=== PATIENT | male | born 1960 | race Caucasian/White ===

== ENCOUNTER → 2017-11-03 15:56 | Outpatient (CLI) | payer OTHER ==
[2013-06-15 08:31] VITALS: BMI 27.4
[~2017-11-03 15:56] MED LIST: ZESTRIL20 MG PO
== END | disposition home or self-care (01) ==
LOC: D.RAD 15:56
DX: Z12.2 Encounter for screening for malignant neoplasm of respiratory organs (principal)

== ENCOUNTER 2018-08-20 12:33 | Emergency (ER) | payer OTHER ==
[~2018-08-20] VITALS: Ht 193 cm; Wt 88.5 kg
[2018-08-20 12:35] VITALS: Ht 193 cm; Wt 88.5 kg
[2018-08-20 12:48] LABS: BASOPHILS 0.3 % (0-2); EOSINOPHILS 1.1 % (0-7); HEMATOCRIT 44.1 % (42.0-54.0); HEMOGLOBIN 15.5 g/dL (13.5-17.5); IMMATURE GRANULOCYTES 0.2 % (0-5); LYMPHOCYTES 16.2 % (15-50); MCH 33.7 pg (26.0-34.0); MCHC 35.1 g/dL (31.0-37.0); MCV 95.9 fL (80.0-100.0); MEAN PLATELET VOLUME 10.8 fL (7.4-10.4); MONOCYTES 6.8 % (2-11); NEUTROPHILS 75.4 % (40-80); PLATELET COUNT 248 10x3/uL (130-400); RDW 12.6 % (11.5-14.5); WBC 8.7 10x3/uL (4.8-10.8)
[2018-08-20 13:11] LABS: ALBUMIN 3.9 g/dL (3.4-5.0); ALKALINE PHOSPHATASE 65 U/L (46-116); ALT (SGPT) 44 U/L (10-68); BILIRUBIN - TOTAL 1.27 mg/dL (0.2-1.3); CALC OSMOLALITY 280 mosm/kg (275-300); CALCIUM 9.3 mg/dL (8.5-10.1); CHLORIDE - SERUM 106 mmol/L (98-107); CREATININE - SERUM 1.1 mg/dL (0.6-1.3); GLUCOSE 132 mg/dL (74-106); POTASSIUM - SERUM 4.2 mmol/L (3.5-5.1); PROTEIN - SERUM 7.2 g/dL (6.4-8.2); SODIUM 139 mmol/L (136-145); UREA NITROGEN 16 mg/dL (7-18); eGFR NON AFRICAN AMERICAN 73 mL/min (90-120)
[2018-08-20 13:24] LABS: CKMB 1.7 U/L (0.0-3.6); CREATINE KINASE 50 UL (21-232); PRO BNP 4244 pg/mL (0-125); TROPONIN-I < 0.017 ng/mL (0.000-0.060)
[2018-08-20] MEDS ORDERED: FUROSEMIDE20 MG PO (15:24)
[2018-08-20 15:38] VITALS: BP 122/55
== END 2018-08-20 15:40 | disposition home or self-care (01) ==
LOC: D.ER 12:33
PROVIDERS: Emergency Medicine
DX: R06.02 Shortness of breath (principal)

== ENCOUNTER 2018-10-18 10:35 | Inpatient (IN) | payer OTHER ==
[2018-10-18] VITALS (7 sets, daily range): BP systolic 108–126; BP diastolic 63–71
[~2018-10-18] VITALS: Ht 195.6 cm; Wt 87.7 kg
--- NOTE | ~2018-10-18 | MORECARE ---
CASE MANAGEMENT DISCHARGE SUMMARY PATIENT: JEWEL VERONICA UNIT: [id number] ADM DATE: 10/18/18 AGE: 58 : 64 SEX: M ROOM/BED: D.1220 AUTHOR: MILADIS RICH PHYSICIAN: REFERRING PHYSICIAN: COLTON JAIN DO DATE OF SERVICE: 10/20/18 Discharge Plan Patient Name: JEWEL VERONICA [facility] [facility] 1960 Planned Disposition: Home Anticipated Discharge Date: Discharge Date: 10/20/2018 Expected LOS: Initial Reviewer: [email or web address] Initial Review Date: 10/20/2018 Generated: 10/20/18 9:08 pm Comments DCP- Discharge Planning Updated by [email or web address]: Heide Valenzuela on 10/20/18 7:[address] Patient Name: JEWEL VERONICA Admission Status: ER Accout number: [id number] Admission Date: 10-18-2018 : 1960 Admission Diagnosis: Attending: Colton Jain Current LOS: 2 Anticipated DC Date: Planned Disposition: Home Primary Insurance: [employer] Discharge Planning Comments: CM met with patient at bedside after obtaining verbal consent. Patient states he plans on returning home after discharge with his . Patient states he will have family transport him home via private vehicle. Patient denies any discharge needs at this time. Order received for home nebulizer. CM faxed over records to [employer] fax [phone]. Patient stated that he would picker on his way home. CM will continue to follow and assist as needed for discharge planning / needs. Solder Cream Maker: Heide Valenzuela DCPIA - Discharge Planning Initial Assessment Updated by [email or web address]: Heide Valenzuela on 10/20/18 8:02 pm * Is the patient Alert and Oriented? Yes * How many steps to enter\exit or inside your home? 3-4 * PCP CRISTOBAL * Pharmacy [facility] * Preadmission Environment Home with Family * ADLs Independent * Equipment None * List name and contact numbers for known caregivers / representatives who currently or will assist patient after discharge: DMITRIY VERONICA [phone] * Verbal permission to speak to the caregivers and representatives has been obtained from the patient. Yes * Community resources currently utilized None * Additional services required to return to the preadmission environment? No * Can the patient safely return to the preadmission environment? Yes * Has this patient been hospitalized within the prior 30 days at any hospital? No Last DP export: 10/20/18 7:02 Patient Name: JEWEL VERONICA Page [id number] at 2009 All edits/amendments must be made on the electronic document DICTATION DATE: 10/20/182007 EMPLOYMENT SPECIALIST: ABEBA 10/20/182007 RPT#: [id number] DC DATE:10/20/18 STATUS: DIS IN [facility] [address] [place] [address] END OF REPORT
--- NOTE | ~2018-10-18 | CN ---
PATIENT NAME:JEWEL VERONICA MEDICAL RECORD: [id number] : 64 LOCATION:[place] [address] ADMIT DATE: 10/18/18 ACCOUNT: [id number] CONSULTING PHYSICIAN: BRAD CHÁVEZ MD REFERRING PHYSICIAN: DARWIN JAIN DO DATE OF CONSULTATION: 10/19/2018 CARDIOLOGY CONSULT DIAGNOSES: 1. Shortness of breath. 2. Mitral regurgitation. 3. Elevated troponin. 4. Chronic obstructive pulmonary disease. 5. Possible pneumonia. HISTORY OF PRESENT ILLNESS: This is a gentleman who presents with increasing episodes of shortness of breath, no chest pain. His troponin is mildly elevated. His BNP is elevated at 12,000; however, his chest x-ray is not compatible with congestive heart failure. He had a cardiac workup at [facility] within the past year, including a cardiac catheterization that was normal. He had an echocardiogram and was told he had mitral regurgitation. PHYSICAL EXAMINATION: GENERAL APPEARANCE: Well-nourished, well-developed, appears stated age. Level of distress, comfortable. PSYCHIATRIC: Mental status, alert, normal affect. Orientation, oriented to time, place and person. EYES: Lids and conjunctiva, noninjected. No discharge, no pallor. ENT: Lips, teeth, gums, normal dentition. Oropharynx, no cyanosis, no pallor. NECK: Carotid arteries, bilateral normal upstroke, no bruits, no thrills. JUGULAR VEINS: No jugular venous pressure or distention. CERVICAL LYMPH NODES: Nontender, nonenlarged. THYROID: Not enlarged. Nontender. No nodules. LUNGS: Respiratory effort, unlabored. CHEST: Normal curvature. No thoracic deformity. No chest wall tenderness. Percussion, resonant. Auscultation, clear. No wheezes, no rales, no rhonchi. CARDIOVASCULAR: Precordial exam, nondisplaced. No heaves or pericardial thrills. Rate and rhythm, regular. Heart sounds, normal S1, normal S2. No S3, no gallop, no rub. Systolic murmur, not heard. Diastolic murmur, not heard. EXTREMITIES: No cyanosis, no edema. Peripheral pulses, full and equal in all extremities, except as noted. No bruits appreciated. ABDOMEN: Soft, nondistended. Normal aorta. No bruit. Nontender. No masses. Liver, nontender, no hepatomegaly. Spleen, nontender, no splenomegaly. MUSCULOSKELETAL: No joint tenderness. No joint swelling. No erythema. NEUROLOGICAL: Normal gait, normal strength, normal tone. SKIN: Warm and dry. OVERALL IMPRESSION: Shortness of breath. The chest x-ray and CT are compatible with possible pneumonia, not compatible with congestive heart failure. We will get an echocardiogram, other than that no other cardiac workup or treatment is necessary at this time. TRANSINT:[id number] Voice Confirmation ID: [id number] DOCUMENT ID: [id number] CONSULT REPORT [id number] JEWEL VERONICA, BRAD MARTIN at 1718 CC: [id number] DICTATION DATE: 10/19/1848 IT ACCOUNT MANAGER: 10/19/18 1036 ADM IN [facility] [address] [place] [address]
--- NOTE | ~2018-10-18 | EC ---
PATIENT:JEWEL VERONICA DATE OF SERVICE: 10/18/18 SEX: M MEDICAL RECORD: [id number] DATE OF : [birth year] [facility] AGE OF PATIENT: 58 ADMISSION DATE: 10/18/18 REFERRING PHYSICIAN: INTERPRETING PHYSICIAN: BRAD NICHOLSON MD ECHOCARDIOGRAM REPORT ECHO CHARGES 4 ECHO COMPLETE Date: 10/19/18 CLINICAL DIAGNOSIS: ELEVATED BNP/ASSESS VALVE AND FOR MITRAL REGURG REGURG ECHOCARDIOGRAPHIC MEASUREMENTS (adult normal given) AC root (d.<3.7cm) 4.2 cm LV Septum d (<1.2 cm> 1.6 cm Valve Excursion 1.3 cm LV Septum (systole) 1.9 cm Left Atria (s.<4.0cm> 4.6 cm LVPW d(<1.2cm) 2.0 cm RV (d.<2.3cm) 4.1 cm LVPW (sytole) 2.2 cm LV diastole(<5.6CM) 6.7 cm MV E-F(>70mm/sec) cm LV systole 5.6 cm LVOT Diameter 1.7 cm MV exc.(>10mm) 1.7 cm Est.ejection fraction (50-75%) % DOPPLER: LVIT cm/sec A 38.0 cm/sec E 103 cm/sec LA cm/sec RVSP 30 mmHg LVOT 220 cm/sec AOP1/2T m/s Asc. Ao 410 cm/sec RVOT 80 cm/sec RA cm/sec PA 113 cm/sec AV Gradient Peak 67.37mmHg AV Mean 42.98mmHg AV Area 1.2 cm MV Gradient Peak mmHg MV Mean mmHg MV Area cm COMMENTS: Blind Escort: Carina HERMAN Monument Letterer: 1 Dr. Nicholson TAPE# PACS Pericardial Effusion N DATE OF SERVICE: 10/19/2018 FINDINGS: 1. Left ventricular chamber size is mildly dilated. Left ventricular systolic function is preserved. Overall ejection fraction is 50% to 55%. 2. Left atrium is enlarged at 4.6 cm. Right atrium and right ventricle chamber sizes are as well mildly dilated. 3. Valvular structures: Aortic valve demonstrates rkziwern-by-uvzacg calcific aortic stenosis. Valve area calculates to 1.2 cm-squared with gradient of 67 mm ECHOCARDIOGRAM REPORT [id number] GLENYS,JEWEL S across the valve. The remaining valvular structures have normal structure and motion. 4. Doppler interrogation else raymond reveals mild tricuspid regurgitation. No other valvular insufficiency or stenosis. Pulmonary systolic pressure is estimated at 30 mmHg. 5. No evidence of pericardial effusion or left ventricular thrombus. TRANSINT:[id number] Voice Confirmation ID: [id number] DOCUMENT ID: [id number] BRAD NICHOLSON MD at 1718 CC: [id number] DICTATION DATE: 10/19/18 1154 COOK FROZEN DESSERT: 10/19/18 1244 ADM IN [facility] [address] [place] [address]
--- NOTE | ~2018-10-18 | MORECARE ---
CASE MANAGEMENT DISCHARGE SUMMARY PATIENT: JEWEL VERONICA S UNIT: [id number] ADM DATE: 10/18/18 AGE: 58 : 64 SEX: M ROOM/BED: D.1220 AUTHOR: MILADIS RICH PHYSICIAN: REFERRING PHYSICIAN: DARWIN JAIN DO DATE OF SERVICE: 10/20/18 Discharge Plan Patient Name: JEWEL VERONICA [facility] [facility] 1960 Planned Disposition: Home Anticipated Discharge Date: Discharge Date: 10/20/2018 Expected LOS: Initial Reviewer: [email or web address] Initial Review Date: 10/20/2018 Generated: 10/20/18 9:02 pm DCPIA - Discharge Planning Initial Assessment Updated by [email or web address]: Heide Valenzuela on 10/20/18 8:02 pm * Is the patient Alert and Oriented? Yes * How many steps to enter\exit or inside your home? 3-4 * PCP CRISTOBAL * Pharmacy [facility] * Preadmission Environment Home with Family * ADLs Independent * Equipment None * List name and contact numbers for known caregivers / representatives who currently or will assist patient after discharge: DMITRIY VERONICA [phone] * Verbal permission to speak to the caregivers and representatives has been obtained from the patient. Yes * Community resources currently utilized None * Additional services required to return to the preadmission environment? No * Can the patient safely return to the preadmission environment? Yes * Has this patient been hospitalized within the prior 30 days at any hospital? No External Providers External Provider: [facility] Next Contact Date: Service Request Date: Service Type: Resolution: Reviewer: Comments: Patient Name: JEWEL VERONICA Page [phone] at 2001 All edits/amendments must be made on the electronic document DICTATION DATE: 10/20/182001 PLASTIC BOAT PATCHER: ABEBA 10/20/182001 RPT#: [id number] DC DATE:10/20/18 STATUS: DIS IN [facility] [address] [place] [address] END OF REPORT
--- NOTE | ~2018-10-18 | CN ---
PATIENT NAME:JEWEL RENDON MEDICAL RECORD: [id number] : 64 LOCATION:[facility] [address] ADMIT DATE: 10/18/18 ACCOUNT: [id number] CONSULTING PHYSICIAN: DONI HERNANDEZ MD REFERRING PHYSICIAN: COLTON JAIN DO DATE OF CONSULTATION: 10/19/2018 CONSULT REQUESTING PHYSICIAN: Colton Jain DO REASON FOR CONSULTATION: Dyspnea, bilateral pleural effusion, and pulmonary edema. HISTORY OF PRESENT ILLNESS: Mr. Rendon is a 58-year-old gentleman who has history of chronic systolic congestive heart failure with EF 40% to 45% in June of this year. He was seen by the medical technologist chemistry. According to the patient, this is the second episode. He woke up with orthopnea and severe shortness of breath. He coughs with whitish color sputum production. On evaluation in the ER, it was found out that he has bilateral pleural effusion and bilateral infiltrate. REVIEW OF THE SYSTEMS: As in history of present illness. PAST MEDICAL HISTORY: 1. COPD. 2. Hypertension. 3. Congestive heart failure. ALLERGY: There is no known drug allergy. MEDICATIONS: On [employer]. He is on IV Lasix. PERSONAL AND SOCIAL HISTORY: The patient is drinking for 25 years. He was also ex-smoker. FAMILY HISTORY: Noncontributory. PHYSICAL EXAMINATION: GENERAL: Now, the patient is lying comfortably in bed. He is not in acute distress. VITAL SIGNS: The blood pressure is 125/65, pulse is 73, respiration is 16, temperature is 97, and SpO2 is 98% on room air. HEENT: Conjunctivae are pink. Sclerae are not icteric. NECK: Neck is supple. No JVD. CHEST: The chest excursion is minimal on both sides. There are bilateral crackles. No wheezing. HEART: Rhythm regular. Normal sound. No murmur. ABDOMEN: Abdomen is soft. Bowel sounds present. No hepatosplenomegaly. RECTAL: Deferred. EXTREMITIES: No cyanosis. No clubbing. No pedal edema. CENTRAL NERVOUS SYSTEM: The patient is awake and alert. There is no obvious cranial nerve abnormality. DIAGNOSTIC DATA: CTA of the chest; there is no pulmonary embolism. There is multifocal airspace disease in right upper lobe, right lower lobe, and left lower lobe. There is also ghicw-eu-rfgbsard pleural effusion, right more than CONSULT REPORT [id number] JEWEL RENDON S the left. There are emphysematous changes. IMPRESSION: 1. Multilobar pneumonia, most likely community-acquired pneumonia. 2. Pulmonary edema secondary to congestive heart failure and systolic dysfunction with ejection fraction of 40%. 3. Bilateral pleural effusions, right more than the left, secondary to CHF. 4. Acute exacerbation of COPD. 5. Elevated cardiac enzymes. RECOMMENDATION: 1. Continue Lasix. Start methylprednisolone IV. 2. Brovana and budesonide nebulizer. 3. Albuterol/ipratropium nebulizer. 4. Continue empiric Levaquin. 4. Follow up labs and chest radiograph. 5. DVT prophylaxis. 6. Cardiology on board. Dr. Jain, thank you for involving me in the care of Mr. Rendon. TRANSINT:[id number] Voice Confirmation ID: [id number] DOCUMENT ID: [id number] DONI HERNANDEZ MD CC: [id number] DICTATION DATE: 10/19/181734 IRS AGENT: 10/19/182206 ADM IN [place] [id number] [place] [id number]
[~2018-10-18 10:35] MED LIST changes: +FUROSEMIDE20 MG PO
[2018-10-18 11:16] LABS: BASOPHILS 0.3 % (0-2); EOSINOPHILS 0.3 % (0-7); HEMATOCRIT 42.6 % (42.0-54.0); HEMOGLOBIN 14.5 g/dL (13.5-17.5); IMMATURE GRANULOCYTES 0.1 % (0-5); LYMPHOCYTES 9.8 % (15-50); MCH 32.7 pg (26.0-34.0); MCV 96.2 fL (80.0-100.0); MEAN PLATELET VOLUME 10.7 fL (7.4-10.4); MONOCYTES 6.3 % (2-11); NEUTROPHILS 83.2 % (40-80); PLATELET COUNT 229 10x3/uL (130-400); RBC 4.43 10x6/uL (4.20-6.10); RDW 13.1 % (11.5-14.5); WBC 7.4 10x3/uL (4.8-10.8)
[2018-10-18 11:29] LABS: APTT 26.4 SECONDS (22.8-39.4); INR 1.05 (0.85-1.17); PROTIME 13.2 SECONDS (11.6-15.0)
[2018-10-18 11:35] LABS: ALBUMIN 3.6 g/dL (3.4-5.0); ALKALINE PHOSPHATASE 103 U/L (46-116); ALT (SGPT) 139 U/L (10-68); BILIRUBIN - TOTAL 2.02 mg/dL (0.2-1.3); CALC OSMOLALITY 280 mosm/kg (275-300); CALCIUM 9.1 mg/dL (8.5-10.1); CARBON DIOXIDE 24.2 mmol/L (21.0-32.0); CHLORIDE - SERUM 106 mmol/L (98-107); GLUCOSE 120 mg/dL (74-106); POTASSIUM - SERUM 4.5 mmol/L (3.5-5.1); PROTEIN - SERUM 6.7 g/dL (6.4-8.2); SODIUM 139 mmol/L (136-145); UREA NITROGEN 18 mg/dL (7-18); eGFR NON AFRICAN AMERICAN 82 mL/min (90-120)
[2018-10-18 11:47] LABS: CKMB 4.5 U/L (0.0-3.6); CREATINE KINASE 128 UL (21-232); PRO BNP 12713 pg/mL (0-125)
[2018-10-18 11:55] LABS: TROPONIN-I 0.078 ng/mL (0.000-0.060)
[2018-10-18] MEDS ORDERED: ZESTRIL40 MG PO (12:31)
[2018-10-18] MEDS ORDERED: BISOPROLOL-HCT1 EAC1 PO (12:33)
[2018-10-18] MEDS ORDERED: SINGULAIR10 MG PO (12:34)
[2018-10-18] MEDS ORDERED: SYMBICORT 16010.2 GM POINH (12:35)
[2018-10-18] MEDS ORDERED: ALEVE-D SINUS1 EACH (12:35)
[2018-10-19 07:47] LABS: BASOPHILS 0.5 % (0-2); EOSINOPHILS 1.2 % (0-7); HEMATOCRIT 43.9 % (42.0-54.0); HEMOGLOBIN 15.4 g/dL (13.5-17.5); IMMATURE GRANULOCYTES 0.2 % (0-5); LYMPHOCYTES 13.3 % (15-50); MCH 33.2 pg (26.0-34.0); MCHC 35.1 g/dL (31.0-37.0); MCV 94.6 fL (80.0-100.0); MEAN PLATELET VOLUME 10.9 fL (7.4-10.4); MONOCYTES 11.7 % (2-11); NEUTROPHILS 73.1 % (40-80); PLATELET COUNT 235 10x3/uL (130-400); RBC 4.64 10x6/uL (4.20-6.10); RDW 13.2 % (11.5-14.5); WBC 5.6 10x3/uL (4.8-10.8)
[2018-10-19 08:16] LABS: ALBUMIN 3.7 g/dL (3.4-5.0); ALKALINE PHOSPHATASE 102 U/L (46-116); ALT (SGPT) 120 U/L (10-68); BILIRUBIN - TOTAL 3.03 mg/dL (0.2-1.3); CALC OSMOLALITY 280 mosm/kg (275-300); CALCIUM 9.2 mg/dL (8.5-10.1); CARBON DIOXIDE 24.9 mmol/L (21.0-32.0); CHLORIDE - SERUM 102 mmol/L (98-107); CKMB 12.1 U/L (0.0-3.6); CREATININE - SERUM 1.1 mg/dL (0.6-1.3); GLUCOSE 109 mg/dL (74-106); PROTEIN - SERUM 7.2 g/dL (6.4-8.2); SODIUM 140 mmol/L (136-145); THYROID STIMULATING HORMONE 1.18 uIU/mL (0.36-3.74); UREA NITROGEN 14 mg/dL (7-18); eGFR NON AFRICAN AMERICAN 73 mL/min (90-120)
[2018-10-19 08:20] LABS: CREATINE KINASE 339 UL (21-232); POTASSIUM - SERUM 3.7 mmol/L (3.5-5.1); TROPONIN-I 0.077 ng/mL (0.000-0.060)
[2018-10-19 14:14] LABS: CREATINE KINASE 327 UL (21-232)
[2018-10-19 14:16] LABS: TROPONIN-I 0.072 ng/mL (0.000-0.060)
[2018-10-19 19:35] LABS: CKMB 9.4 U/L (0.0-3.6)
[2018-10-19 19:37] LABS: CREATINE KINASE 507 UL (21-232)
[2018-10-19 19:38] LABS: TROPONIN-I 0.093 ng/mL (0.000-0.060)
[2018-10-19 20:22] VITALS: BP 99/51; Ht 195.6 cm; Wt 87.7 kg
[2018-10-19 20:47] VITALS: BP 111/59
[2018-10-20 01:00] VITALS: BP 105/65
[2018-10-20 05:39] VITALS: BP 91/57
[2018-10-20] MEDS ORDERED: LEVAQUIN750 MG PO (07:03)
[2018-10-20] MEDS ORDERED: IPRAT-ALBUT 0.5-3 ML INH (07:04)
[2018-10-20] MEDS ORDERED: LASIX40 MG PO (07:05)
[2018-10-20] MEDS ORDERED: K-TAB10 MEQ PO (07:06)
[2018-10-20] MEDS ORDERED: Zebeta PO (07:06)
[2018-10-20] MEDS ORDERED: STERAPRED DS 1210 MG PO (07:08)
[2018-10-20 07:16] LABS: BASOPHILS 0.1 % (0-2); EOSINOPHILS 0 % (0-7); HEMATOCRIT 44.9 % (42.0-54.0); HEMOGLOBIN 15.7 g/dL (13.5-17.5); IMMATURE GRANULOCYTES 0.3 % (0-5); LYMPHOCYTES 3.9 % (15-50); MCH 33.3 pg (26.0-34.0); MCV 95.1 fL (80.0-100.0); MEAN PLATELET VOLUME 10.5 fL (7.4-10.4); MONOCYTES 2.7 % (2-11); PLATELET COUNT 269 10x3/uL (130-400); RBC 4.72 10x6/uL (4.20-6.10)
[2018-10-20 07:17] LABS: WBC 7.2 10x3/uL (4.8-10.8)
[2018-10-20 07:44] LABS: ALBUMIN 3.6 g/dL (3.4-5.0); ANION GAP 15.9 mmol/L (8-16); BILIRUBIN - TOTAL 1.92 mg/dL (0.2-1.3); CALCIUM 9.1 mg/dL (8.5-10.1); CARBON DIOXIDE 23.5 mmol/L (21.0-32.0); CREATININE - SERUM 1.6 mg/dL (0.6-1.3); PHOSPHOROUS 4.8 mg/dL (2.5-4.9); POTASSIUM - SERUM 4.4 mmol/L (3.5-5.1); PROTEIN - SERUM 7.2 g/dL (6.4-8.2)
[2018-10-20 08:45] VITALS: BP 87/45; BP 88/43
[2018-10-20 11:55] VITALS: BP 94/53
[2018-10-20 14:30] VITALS: BP 94/56
== END 2018-10-20 16:05 | disposition home or self-care (01) | DRG 193 ==
LOC: D.ER 10:35 → D.EDHOLD 17:15 → D.WS 10-19 15:10
PROVIDERS: Emergency Medicine; Family Medicine
DX: J18.1 Lobar pneumonia, unspecified organism (principal); I50.23 Acute on chronic systolic (congestive) heart failure; J44.0 Chronic obstructive pulmonary disease with (acute) lower respiratory infection; J44.1 Chronic obstructive pulmonary disease with (acute) exacerbation; I11.0 Hypertensive heart disease with heart failure; I35.0 Nonrheumatic aortic (valve) stenosis; I34.0 Nonrheumatic mitral (valve) insufficiency